=== PATIENT | female | born 1935 | race Hispanic/Latino ===

== ENCOUNTER 2019-04-05 13:49 | Emergency (ER) | payer MEDICARE, MEDICAID ==
[~2019-04-05] VITALS: Ht 165.1 cm; Wt 68.0 kg
[2019-04-05] MEDS ORDERED: RAMIPRIL2.5 MG PO (14:00)
[2019-04-05] MEDS ORDERED: ATENOLOL25 MG PO (14:00)
[2019-04-05] MEDS ORDERED: LASIX40 MG PO (14:01)
[2019-04-05] MEDS ORDERED: POTASSIUM CHLO10 ME1 PO (14:01)
[2019-04-05] MEDS ORDERED: ULTRAM50 M1 PO (16:00)
[2019-04-05 16:28] VITALS: BP 154/76
[2019-04-05] MEDS ORDERED: OMEPRAZOLE20 MG PO (17:12)
[2019-04-05] MEDS ORDERED: LEVOTHYROXIN50 MCG PO (17:12)
[2019-04-05] MEDS ORDERED: MIRTAZAPINE15 M1 PO (17:13)
[2019-04-05] MEDS ORDERED: GABAPENTIN400 MG PO (17:14)
[2019-04-05] MEDS ORDERED: SIMVASTATIN20 MG PO (17:14)
[2019-04-05] MEDS ORDERED: PRAMIPEXOLE0.125 M1 PO (17:14)
[2019-04-05] MEDS ORDERED: TRAVATAN0.0041 OU (17:15)
[2019-04-05] MEDS ORDERED: PLAVIX75 MG PO (17:15)
== END 2019-04-05 17:55 | disposition home or self-care (01) ==
LOC: ED 13:49
DX: S62.292A Other fracture of first metacarpal bone, left hand, initial encounter for closed fracture (principal); S62.291A Other fracture of first metacarpal bone, right hand, initial encounter for closed fracture; W06.XXXA Fall from bed, initial encounter; Y92.013 Bedroom of single-family (private) house as the place of occurrence of the external cause